=== PATIENT | female | born 1940 | race African-American/Black ===

== ENCOUNTER 2016-08-06 08:56 | Inpatient (IN) ==
--- NOTE | 2016-08-06 09:30 | Emergency Department Note ---
Gulshan Zaldivar Hilary, am scribing for, and in the presence of, Luis Manuel Pedro MD 09: 27. Mayela Zaldivar James D, MD, personally performed the services described in this documentation, ascribed by Christina Gaffney in my presence, and it is both accurate and complete 930 . Arrival - Arrival Chief Complaint: Non-Specific ED Nursing Triage Note: c/o abscess to lt groin. saw pcp and took antibiotics with no relief. no abscess noted to groin. pt just c/o rt shoulder pain Mode of Arrival: Stretcher Limitations: No Limitations Source: Patient, RN Notes Reviewed Time Seen by Provider: 08/06/16 09:16 - History of Present Illness HPI Narrative: Pt is a 76 y/o black female presenting to the ED with c/o chronic rt shoulder pain which onset 2 months ago. Pt has been here for the same problem and she was told to go to her PCP to have it checked and she has a nerve conduction study scheduled in 2 days. Pt confirms rt shoulder pain. Pt also mentions an abscess in her groin on the left side. No other complaints or problems stated in the ED. Onset (ago): month(s) Consistency: constant Severity: severe Allergies/Adverse Reactions: Allergies Allergy/AdvReac Type Severity Reaction Status Date / Time vancomycin AdvReac Unknown/Unable Verified 07/22/16 17:16 to obtain Home Medications: Home Medications Medication Instructions Recorded Confirmed Type Aspirin [Ecotrin] 81 mg PO QAM 09/07/15 07/22/16 History Digoxin Tab [Lanoxin Tab] 0.125 mg PO QAM 09/07/15 07/22/16 History Pantoprazole Tab [Protonix Tab] 40 mg PO QAM 09/07/15 07/22/16 History Tamoxifen Citrate 20 mg PO QAM 09/07/15 07/22/16 History Atorvastatin [Lipitor] 40 mg PO BEDTIME 02/03/16 07/22/16 History Magnesium 250 mg PO QAM 02/03/16 07/22/16 History Metformin HCl 1,000 mg PO BID W/MEALS 02/03/16 07/22/16 History Metoclopramide Tab [Reglan Tab] 10 mg PO ACHS 02/03/16 07/22/16 History Apixaban [Eliquis] 5 mg PO BID tablet 02/08/16 07/22/16 Rx Metoprolol Tartrate Tab [Lopressor 100 mg PO BID tablet 02/08/16 07/22/16 Rx Tab] glyBURIDE [Diabeta] 5 mg PO BID W/MEALS tablet 02/08/16 07/22/16 Rx Diltiazem Cd Cap [Cardizem CD] 120 mg PO QAM 07/22/16 07/22/16 History Folic Acid Tab 1 mg PO QAM 07/22/16 07/22/16 History Furosemide [Furosemide] 40 mg PO BID 07/22/16 07/22/16 History Hydrocodone/Acetaminophen 1 each PO Q4H PRN 07/22/16 07/22/16 History [Hydrocodon-Acetaminophn 10-325] Insulin NPH/Regular 70/30 [HumuLIN 0 units SUBCUT ACHS PRN 07/22/16 07/22/16 History 70/30] Insulin NPH/Regular 70/30 [HumuLIN 22 units SUBCUT QPM 07/22/16 07/22/16 History 70/30] Insulin NPH/Regular 70/30 [HumuLIN 25 units SUBCUT QAM 07/22/16 07/22/16 History 70/30] Review of System - Review of System 12 point system: reviewed and no additional remarkable complaints except as stated - Review of System Musculoskeletal: Present: arm pain (rt shoulder pain) Skin: Present: other (abcess in groin) Medical,Surgical,& Family Hx - Medical History Cardio: History of: Cardiac Dysrhythmia (atrial fibrillation), Hypertension No history of: Pacemaker, Valvular Heart Disease Neurology: History of: Cerebrovascular Accident Endocrine: History of: Diabetes Mellitus (IDDM) Respiratory: No history of: COPD, Obstructive Sleep Apnea, Pulmonary Embolism Renal: History of: Renal Problems (Abnormal Renal CT suspicious renal cell CA June 2015) Gastrointestinal: History of: GERD, Gastrointestinal Cancer (colon) No history of: Gastrointestinal Bleed, Hematochezia Reproductive: History of: Breast Cancer - Surgical History Abdominal Surgeries: Surgical HX of: Colonoscopy Reproductive Surgeries: Surgical HX of;: Breast Surgery (right breast mastectomy ) - Family History Family History: Reports;: Family Cancer, Family Diabetes, Family Hypertension - Social History Smoking Status: Current every day smoker Frequency of Alcohol Use: None Type of Drug Use: None Exam Physical Examination: GENERAL: This is a well-nourished, well-developed in no apparent distress. VITAL SIGNS: Temperature: 97.2 Pulse: 78 Respiratory: 18 Blood Pressure: 156/87 O2Sat: 99 HEENT: Head is normocephalic and atraumatic. Pupils are equally round and reactive to light. Extraocular movement are intact. Oropharynx is benign with moist mucous membranes. NECK: Neck is soft and supple without tenderness. There are no masses. There is no lymphadenopathy. LUNGS: Lungs are clear to auscultation bilaterally. Chest rises symmetrically. There is no chest wall tenderness. CV: Heart is regular rate and rhythm without murmurs, rubs, or gallops. ABDOMEN: Abdomen is soft, epigastric tenderness to palpation. There are no abnormal masses palpated. There is no organomegaly. Bowel sounds are present and active. SKIN: Skin is warm and dry. No rash. EXTREMITIES: Patient has full range of motion without tenderness. There is no pedal edema. NEUROLOGIC: Awake, alert, and oriented x4. Cranial nerves II through XII are grossly intact. There are no motorsensory deficits. PSYCHIATRIC: Normal affect. Normal mood. Vital Signs: Vital Signs Temperature 97.2 F L 08/06/16 08:57 Pulse Rate 78 08/06/16 08:57 Respiratory Rate 18 08/06/16 09:25 Blood Pressure 156/87 08/06/16 08:57 O2 Sat by Pulse Oximetry 99 08/06/16 08:57 Course - Consultations Consultation #1: Discussed with hospitalist. Patient will be admitted to their service. Time: 12:31 Results - Labs CBC & BMP: 08/06/16 10:14 08/06/16 10:14 Lab Results: I have reviewed the patients labs Labs: Laboratory Tests 08/06/16 10:14 Urine pH 6.0 Ur Specific [place] 1.024 Urine Protein 30 Urine RBC 2 Urine WBC 1 Laboratory Tests 08/06/16 08/06/16 08/06/16 10:14 10:14 10:14 WBC 11.6 RBC 5.21 Hgb 14.4 Hct 42.0 MCV 80.6 L MPV 12.1 H Lymph % (Auto) 19.7 L Neut # (Auto) 8.3 H Urine Color Yellow Urine Appearance Clear Urine Urobilinogen < 2.0 H Urine Opiates Screen Positive H - Diagnostic Findings Procedure: Chest x-ray: image reviewed by me (No acute cardiopulmonary process compared to the previous study. Stable mild cardiomegaly), CT: report reviewed by me (CT head/brain: No acute intracranial process. Chronic small occipital infarcts bilaterally. Cerebral atrophy.) Disposition Clinical Impression: Right shoulder pain, Altered mental status Case discussed with: patient Disposition: Still a Patient Condition: Stable
--- NOTE | 2016-08-06 09:52 | XRay Report ---
History: Right shoulder pain Date: 08/06/2016 Study: Chest x-ray AP portable Comparison exam: February 06, 2016 chest x-ray There is stable mild cardiomegaly. The mediastinal contour is unchanged. There is mild aortic arch calcification. The pulmonary vasculature is not engorged. The lungs are generally clear. Shallow breath. There is no gross pleural effusion. There is osteopenia. Impression: No acute cardiopulmonary process compared to the previous study. Stable mild cardiomegaly PROCEDURE INTERPRETED AT [facility] DEPARTMENT OF RADIOLOGY Final Report Signed by: Dr. Tavia Singh
[2016-08-06 11:15] LABS: Apearance,Urine CLEAR (Clear); Bacteria,Urine Occasional /HPF (Few); Bilirubin,Urine Negative (Negative); Blood, Urine Small mg/dL (Negative); Glucose,Urine (UA) >=500 mg/dL (Negative); Hyaline Casts,Urine 5 /LPF (0-3); Ketones,Urine Negative (Negative); Mucus,Urine Occasional /LPF (Occasional); Nitrite,Urine Negative (Negative); Protein,Urine 30 MG/DL; RBC,Urine 2 /HPF (0-4); Squamous Epithelial Cell,Urine Occasional /HPF (0-10); Urine Color Yellow (Yellow); Urine Specific Gravity 1.024 (1.001-1.035); Urine Urobilinogen < 2.0 EU/DL (0.2-1.0); WBC,Urine 1 /HPF (0-6)
[2016-08-06 11:16] LABS: Basophils # 0.1 10*3/uL (0.0-0.2); Basophils % 0.6 % (0.0-0.8); Eosinophils # 0.1 10*3/uL (0.0-0.87); Eosinophils % 0.7 % (0.00-10.9); Hemoglobin 14.4 GM/DL (12.0-16.0); Immature Granulocytes % 0.5 %; Immature Granulocytes Absolute 0.06 #; Lymphocytes # 2.3 10*3/uL (1.4-4.0); Lymphocytes % 19.7 % (21.3-54.2); Mean Corpuscular HGB Conc 34.3 GM/DL (32-36); Mean Corpuscular Hemoglobin 28 PG (27-34); Mean Corpuscular Volume 80.6 FL (87-102); Mean Platelet Volume 12.1 FL (9.6-12.0); Monocytes # 0.8 10*3/uL (0.11-0.8); Monocytes % 6.8 % (1.7-12.7); Neutrophils # 8.3 10*3/uL (1.4-7.4); Neutrophils % 71.7 % (38.7-73.9); Platelet Count 196 T/CUMM (130-400); Red Blood Count 5.21 MC/CUMM (3.8-5.5); Red Cell Distribution Width 13.8 % (9.3-17.3); White Blood Count 11.6 T/CUMM (4-12)
[2016-08-06 11:39] LABS: Ammonia 21 UMOL/L (11-32)
[2016-08-06 11:42] LABS: Alanine Aminotransferase 22 U/L (13-56); Albumin 3.3 G/DL (3.4-5.0); Alkaline Phosphatase 88 U/L (45-117); Aspartate Amino Transferase 15 U/L (0-37); Bilirubin,Total < 0.39 MG/DL (0.2-1.0); Blood Urea Nitrogen 19 MG/DL (7-18); Calcium 8.5 MG/DL (8.5-10.1); Glucose 256 MG/DL (74-106); Osmolality,Calculated 283.8 MOS/KG (273-304); Potassium 3.9 MMOL/L (3.5-5.1); Sodium 137 MMOL/L (136-145); Total Protein 7.2 G/DL (6.4-8.3)
--- NOTE | 2016-08-06 11:45 | CT Report ---
History: Altered mental status Date: 08/06/2016 Study: CT head without contrast Comparison exam: No previous head CT available Transaxial CT sections were obtained through the head without IV contrast. This CT exam was performed using one or more the following dose reduction techniques: Automated exposure control, adjustment of the MA and/or KV according to patient size, or use of iterative reconstruction technique. The ventricles are midline in position without evidence of hydrocephalus. There is mild diffuse cerebral atrophy. There is no mass or parenchymal hemorrhage. There is no gross CT evidence of acute cortical stroke. Small areas of chronic ischemia are noted in either occipital lobe. There is no extra-axial hematoma. There is mild to moderate distal carotid artery calcification. There is no acute abnormality of the calvarium. There is mild distal carotid artery calcic aeration bilaterally. Impression: No acute intracranial process. Chronic small occipital infarcts bilaterally. Cerebral atrophy. PROCEDURE INTERPRETED AT [facility] DEPARTMENT OF RADIOLOGY Final Report Signed by: Dr. Tavia Singh
[2016-08-06 12:09] LABS: Barbiturates Screen,Urine Negative (Negative); Benzodiazepines Screen,Urine Negative (Negative); Cannabinoid Screen,Urine Negative (Negative); Opiate Screen,Urine Positive (Negative); Phencyclidine Screen,Urine Negative (Negative)
[2016-08-06] MEDS ORDERED: ACETAMINOPHEN 325 MG TABLET PO PRN (13:55)
[2016-08-06] MEDS ORDERED: GLUCAGON 1 MG VIAL IM PRN (13:55)
[2016-08-06] MEDS ORDERED: DEXTROSE 50% 25 GM/50 ML VIAL IV PRN (13:55)
[2016-08-06] MEDS ORDERED: ONDANSETRON 4 MG/2 ML VIAL IV PRN (13:55)
[2016-08-06 14:26] LABS: Free T4 (Free Thyroxine) 1.3 NG/DL (0.76-1.46); Thyroid Stimulating Hormone 1.49 uIU/ml (0.358-3.74)
--- NOTE | 2016-08-06 15:06 | Hospitalist History & Physical ---
<Bernardo Bustillos - Last Filed: 08/06/16 15:13> Assessment and Plan - Time spent with patient Time spent with patient: Greater than 30 minutes (1) Altered mental status Status: Acute Assessment and plan: Admit for further evaluation and treatment. Blood culture stat with sed rate and CBC. Evaluation for possible new onset dementia. Current Visit: Yes (2) Right shoulder pain Status: Acute Assessment and plan: Patient is scheduled to have a nerve conduction study by Dr. Chambers on Saturday. Perhaps this can be done as an inpatient. Current Visit: Yes (3) Diabetes mellitus Status: Chronic Assessment and plan: Serum glucose greater than 200. Hemoglobin A1c was 12.0. Sliding scale insulin. Accu-Cheks ACHS. Consult dietitian for diabetic education. Current Visit: No History of Present Illness Chief complaint: Altered mental status History of present illness: Ms. Palomo is a 76 year old female with a past medical history of colon cancer and breast cancer with right mastectomy 2 years ago, atrial fibrillation, diabetes mellitus, hypertension, congestive heart failure, chronic right shoulder pain who presents to the ED with complaints of progressive altered mental status. On exam, the patient is alert and oriented to person and time, however the daughter who is at bedside states that the patient is confused, restless with a decreased appetite. The patient's recently passed, and the daughter suspects this has something to do with the patient's current state. The patient is currently complaining of right shoulder pain and restlessness. Patient does answer questions appropriately but is easily distracted. She denies headache, blurry vision, palpitations, near syncope. Patient is scheduled to have a nerve conduction study on Saturday per Dr. Gen Chambers. Lab work reveals sodium 137, potassium 3.9, chloride 99, BUN 19, creatinine 1.10, glucose 256, hemoglobin A1c 12.0. Urine drug screen was positive for opiates. In discussion with Dr. Pedro and Dr. Johnson, patient will be admitted to the hospital medicine service for further evaluation and treatment. Patient is a full code. Home Medications Medication Instructions Recorded Confirmed Type Aspirin [Ecotrin] 81 mg PO QAM 09/07/15 07/22/16 History Digoxin Tab [Lanoxin Tab] 0.125 mg PO QAM 09/07/15 07/22/16 History Pantoprazole Tab [Protonix Tab] 40 mg PO QAM 09/07/15 07/22/16 History Tamoxifen Citrate 20 mg PO QAM 09/07/15 07/22/16 History Atorvastatin [Lipitor] 40 mg PO BEDTIME 02/03/16 07/22/16 History Magnesium 250 mg PO QAM 02/03/16 07/22/16 History Metformin HCl 1,000 mg PO BID W/MEALS 02/03/16 07/22/16 History Metoclopramide Tab [Reglan Tab] 10 mg PO ACHS 02/03/16 07/22/16 History Apixaban [Eliquis] 5 mg PO BID tablet 02/08/16 07/22/16 Rx Metoprolol Tartrate Tab [Lopressor 100 mg PO BID tablet 02/08/16 07/22/16 Rx Tab] glyBURIDE [Diabeta] 5 mg PO BID W/MEALS tablet 02/08/16 07/22/16 Rx Diltiazem Cd Cap [Cardizem CD] 120 mg PO QAM 07/22/16 07/22/16 History Folic Acid Tab 1 mg PO QAM 07/22/16 07/22/16 History Furosemide [Furosemide] 40 mg PO BID 07/22/16 07/22/16 History Hydrocodone/Acetaminophen 1 each PO Q4H PRN 07/22/16 07/22/16 History [Hydrocodon-Acetaminophn 10-325] Insulin NPH/Regular 70/30 [HumuLIN 0 units SUBCUT ACHS PRN 07/22/16 07/22/16 History 70/30] Insulin NPH/Regular 70/30 [HumuLIN 22 units SUBCUT QPM 07/22/16 07/22/16 History 70/30] Insulin NPH/Regular 70/30 [HumuLIN 25 units SUBCUT QAM 07/22/16 07/22/16 History 70/30] Allergies Allergy/AdvReac Type Severity Reaction Status Date / Time vancomycin AdvReac Unknown/Unable Verified 07/22/16 17:16 to obtain Medical,Surgical,& Family Hx - Medical History Cardio: History of: Cardiac Dysrhythmia (atrial fibrillation), Hypertension No history of: Pacemaker, Valvular Heart Disease Psychological: History of: Anxiety Disorders, Depression No history of: ADHD, Previous Suicide Attempt, Psychiatric/Substance Abuse Tx , Schizophrenia, Violent Behavior, Psychiatric Problems Neurology: History of: Cerebrovascular Accident Endocrine: History of: Diabetes Mellitus (IDDM) Respiratory: No history of: COPD, Obstructive Sleep Apnea, Pulmonary Embolism Renal: History of: Renal Problems (Abnormal Renal CT suspicious renal cell CA June 2015) Gastrointestinal: History of: GERD, Gastrointestinal Cancer (colon) No history of: Gastrointestinal Bleed, Hematochezia Reproductive: History of: Breast Cancer - Surgical History Abdominal Surgeries: Surgical HX of: Colonoscopy Reproductive Surgeries: Surgical HX of;: Breast Surgery (right breast mastectomy ) - Family History Family History: Reports;: Family Cancer, Family Diabetes, Family Hypertension - Social History Smoking Status: Current every day smoker Frequency of Alcohol Use: None Type of Drug Use: None - Constitutional Constitutional: Present: headache(s), weakness, other (restless, decreased appetite) - EENT Eyes: Absent: blurry vision, loss of vision Nose, mouth and throat: Absent: neck pain, sore throat - Cardiovascular Cardiovascular: Present: edema. Absent: chest pain at rest, chest pain with activity, dyspnea - Respiratory Respiratory: Absent: cough, dyspnea - Gastrointestinal Gastrointestinal: Absent: abdominal pain, diarrhea - Genitourinary Genitourinary: Absent: difficulty urinating, dysuria - Musculoskeletal Musculoskeletal: Present: other (right shoulder pain). Absent: back pain - Neurological Neurological: Present: confusion, memory loss. Absent: syncope - Psychiatric Psychiatric: Present: confusion. Absent: anxiety, depression, suicidal ideation - Endocrine Endocrine: Absent: cold intolerance, fatigue, heat intolerance - Hematologic/Lymphatic Hematologic/Lymphatic: Absent: easy bleeding, easy bruising Exam - Constitutional Vitals: Period Temp Pulse Resp BP Sys/Antunez Pulse Ox Last 24 Hr 97.2 F-98.0 F 78-142 18-18 142-156/80-87 18-99 Exam: General appearance: normal weight, no acute distress - Head Head exam: Present: normocephalic, atraumatic - Eye Eye exam: Present: EOMI. Absent: conjunctival injection, nystagmus Pupils: Present: ELLIOTT, normal accommodation - ENT ENT exam: Present: normal exam, normal external ear exam - Neck Neck exam: Present: normal inspection. Absent: lymphadenopathy, tenderness, thyromegaly - Respiratory Respiratory exam: Present: clear to auscultation bilaterally. Absent: rales, rhonchi, wheezes - Cardiovascular Cardiovascular exam: Present: regular rate and rhythm. Absent: carotid bruit, gallop, rubs - GI/Abdominal GI/Abdominal exam: Present: normal bowel sounds. Absent: ascites, distended, mass - Extremities Exam Extremities exam: Present: normal inspection, normal capillary refill, trace edema - Back Exam Back exam: Absent: CVA tenderness (L), CVA tenderness (R) - Neurological Exam Neurological exam: Present: alert, oriented to person and time - Psychiatric Psychiatric exam: Present: normal affect, normal mood - Skin Skin exam: Present: normal color, warm, dry Results - Labs CBC & BMP: 08/06/16 10:14 08/06/16 10:14 Lab Results: I have reviewed the past 24 hour labs <Page Johnson R - Last Filed: 08/06/16 18:11> Assessment and Plan (1) Severe major depression Status: Acute Assessment and plan: Rupa psychiatry for an evaluation. Had a recent loss of her . She seems like she has dementia developing. Her appetite is poor and she is not sleeping at night. Check sed rate and TSH. No obvious sign of infection. UA negative and chest x-ray negative Current Visit: Yes (2) Diabetes mellitus Status: Chronic Assessment and plan: Patient has uncontrolled diabetes. Continue glyburide, metformin, insulin Current Visit: No (3) CHF (congestive heart failure) Status: Acute Assessment and plan: Echocardiogram from 2016 showed an EF of 55% with no diastolic dysfunction she does have an elevated PAP of 50. Will check BNP and hold Lasix Current Visit: No (4) Hypertension Status: Chronic Assessment and plan: Continue diltiazem and metoprolol Current Visit: No Qualifiers: Hypertension type: essential hypertension Qualified Code(s): I10 - Essential (primary) hypertension (5) MARIA (obstructive sleep apnea) Status: Chronic Assessment and plan: Consult sleep medicine Current Visit: No (6) Right shoulder pain Status: Acute Assessment and plan: Called down to the sleep lab and asked them to do a nerve conduction study in the hospital. Current Visit: Yes (7) Atrial fibrillation Status: Chronic Assessment and plan: Rate controlled with diltiazem and metoprolol, continue Eliquis, check magnesium Current Visit: No Qualifiers: Atrial fibrillation type: paroxysmal Qualified Code(s): I48.0 - Paroxysmal atrial fibrillation History of Present Illness History of present illness: Ms. Palomo is a 76 year old female seen and examined. patient reports severe depression and we suspect dementia. She has also not been sleeping well at all. I spoke with the daughter. Daughter reports she needs constant attention. reports her recently . Medical,Surgical,& Family Hx - Social History Marital Status: Lives With:: Children Functional capacity: uses cane/walker Exam - Constitutional Vitals: Period Temp Pulse Resp BP Sys/Antunez Pulse Ox Last 24 Hr 97.1 F-98.0 F 78-142 18-18 133-156/11-87 18-99 Results - Labs CBC & BMP: 08/06/16 10:14 08/06/16 10:14 - Diagnostic Findings Procedure: Chest x-ray: report reviewed by me (no acute changes), CT: report reviewed by me (head bilateral infarct)
[2016-08-06] MEDS ORDERED: FUROSEMIDE 40 MG TABLET PO SCH (16:00)
[2016-08-06] MEDS: METOCLOPRAMIDE 10 MG TABLET PO SCH ×2 (16:52→20:44)
[2016-08-06] MEDS: METOPROLOL TARTRATE 100 MG TABLET PO SCH ×2 (16:53→20:44)
[2016-08-06] MEDS: glyBURIDE 5 MG TABLET PO SCH (16:53)
[2016-08-06] MEDS: metFORMIN 500 MG TABLET PO SCH (16:53)
[2016-08-06] MEDS: PANTOPRAZOLE 40 MG TABLET PO SCH (16:54)
[2016-08-06] MEDS: SODIUM CHLORIDE 0.45% 1,000 ML IV SCH (16:54)
[2016-08-06] MEDS: INSULIN LISPRO 100 UNIT/ML SUBCUT SCH ×2 (16:59→20:44)
[2016-08-06] MEDS: FLUCONAZOLE INJ 200 MG in PREMIX 1 EACH IV SCH (18:26)
[2016-08-06] MEDS: INSULIN NPH/REGULAR 70/30 100 UNIT/ML SUBCUT SCH (18:52)
[2016-08-06] MEDS: APIXABAN 5 MG TABLET PO SCH (20:44)
[2016-08-06] MEDS: ATORVASTATIN 40 MG TABLET PO SCH (20:44)
[2016-08-06] MEDS: NYSTATIN POWDER 15 GM BOTTLE TOP SCH (20:44)
[2016-08-06] MEDS: ZALEPLON 5 MG CAPSULE PO PRN (22:56)
[2016-08-07] MEDS: ZALEPLON 5 MG CAPSULE PO PRN (00:18)
[2016-08-07] MEDS: SODIUM CHLORIDE 0.45% 1,000 ML IV SCH (06:16)
[2016-08-07 06:17] LABS: Basophils # 0.1 10*3/uL (0.0-0.2); Basophils % 0.5 % (0.0-0.8); Eosinophils # 0.1 10*3/uL (0.0-0.87); Eosinophils % 1.2 % (0.00-10.9); Hematocrit 41.2 VOL% (35.7-47.0); Immature Granulocytes % 0.6 %; Immature Granulocytes Absolute 0.07 #; Lymphocytes % 25.9 % (21.3-54.2); Mean Corpuscular Hemoglobin 27 PG (27-34); Mean Corpuscular Volume 80.5 FL (87-102); Mean Platelet Volume 12.5 FL (9.6-12.0); Monocytes # 0.8 10*3/uL (0.11-0.8); Monocytes % 6.8 % (1.7-12.7); Neutrophils # 7.5 10*3/uL (1.4-7.4); Platelet Count 196 T/CUMM (130-400); Red Blood Count 5.12 MC/CUMM (3.8-5.5); White Blood Count 11.5 T/CUMM (4-12)
[2016-08-07] MEDS ORDERED: MAGNESIUM GLUCONATE 500 MG TABLET PO SCH (09:00)
[2016-08-07] MEDS: INSULIN NPH/REGULAR 70/30 100 UNIT/ML SUBCUT SCH ×2 (09:29→18:43)
[2016-08-07] MEDS: INSULIN LISPRO 100 UNIT/ML SUBCUT SCH ×4 (09:30→20:11)
[2016-08-07] MEDS: METOPROLOL TARTRATE 100 MG TABLET PO SCH ×2 (09:32→20:10)
[2016-08-07] MEDS: APIXABAN 5 MG TABLET PO SCH ×2 (09:32→20:10)
[2016-08-07] MEDS: DILTIAZEM CD 120 MG CAPSULE PO SCH (09:32)
[2016-08-07] MEDS: TAMOXIFEN 10 MG TABLET PO SCH (09:32)
[2016-08-07] MEDS: glyBURIDE 5 MG TABLET PO SCH ×2 (09:33→16:51)
[2016-08-07] MEDS: metFORMIN 500 MG TABLET PO SCH ×2 (09:33→16:51)
[2016-08-07] MEDS: FOLIC ACID 1 MG TABLET PO SCH (09:33)
[2016-08-07] MEDS: METOCLOPRAMIDE 10 MG TABLET PO SCH ×4 (09:33→20:11)
[2016-08-07] MEDS: DIGOXIN 0.125 MG TABLET PO SCH (09:33)
[2016-08-07] MEDS: ASPIRIN EC 81 MG TABLET PO SCH (09:33)
[2016-08-07] MEDS: PANTOPRAZOLE 40 MG TABLET PO SCH (09:34)
[2016-08-07] MEDS: NYSTATIN POWDER 15 GM BOTTLE TOP SCH ×3 (09:39→20:11)
--- NOTE | 2016-08-07 11:36 | XRay Report ---
XR KUB Indication: Constipation Comparison: CT chest abdomen pelvis dated November 16, 2015 Technique: Frontal views of the abdomen Findings: Nonspecific nonobstructive bowel gas pattern. Surgical clips project over the right upper quadrant and right lower quadrant. Degenerative change of the spine present. Lung bases clear. IMPRESSION: No acute abnormality demonstrated. PROCEDURE INTERPRETED AT [facility] DEPARTMENT OF RADIOLOGY Final Report Signed by: Dr Jaron Pepper
[2016-08-07] MEDS ORDERED: MAGNESIUM SULF RIDER 4 GM in PREMIX 1 EACH IV ONE (13:01)
--- NOTE | 2016-08-07 13:06 | Hospitalist Progress Note ---
Assessment and Plan (1) Severe major depression Status: Acute Assessment and plan: Rupa psychiatry for an evaluation. Had a recent loss of her . She seems like she has dementia developing. Her appetite is poor and she is not sleeping at night. Normal sed rate and TSH no obvious sign of infection. UA negative and chest x-ray negative Current Visit: Yes (2) Diabetes mellitus Status: Chronic Assessment and plan: Patient has uncontrolled diabetes. Continue glyburide, metformin, insulin Current Visit: No (3) CHF (congestive heart failure) Status: Acute Assessment and plan: Echocardiogram from 2016 showed an EF of 55% with no diastolic dysfunction she does have an elevated PAP of 50. BNP 168 and restart Lasix Current Visit: No (4) Hypertension Status: Chronic Assessment and plan: Continue diltiazem and metoprolol Current Visit: No Qualifiers: Hypertension type: essential hypertension Qualified Code(s): I10 - Essential (primary) hypertension (5) MARIA (obstructive sleep apnea) Status: Chronic Assessment and plan: Consult sleep medicine Current Visit: No (6) Right shoulder pain Status: Acute Assessment and plan: Called down to the sleep lab and asked them to do a nerve conduction study in the hospital today. It depends on Dr. ovalle schedule Current Visit: Yes (7) Atrial fibrillation Status: Chronic Assessment and plan: Rate controlled with diltiazem and metoprolol, continue Eliquis Current Visit: No Qualifiers: Atrial fibrillation type: paroxysmal Qualified Code(s): I48.0 - Paroxysmal atrial fibrillation (8) Hypomagnesemia Status: Acute Assessment and plan: Replace and recheck in a.m. Current Visit: No Hospitalist: Subjective Interval history: Patient says she just feels bad all over but is not actually having pain. She did have a bowel movement last night but still has diminished bowel sounds. Talked to the neurology lab about doing a nerve conduction study. Hopefully they can do that today versus tomorrow. This is a depends at Dr. Biggs's schedule Exam - Constitutional Vitals: Period Temp Pulse Resp BP Sys/Antunez Pulse Ox Last 24 Hr 96.9 F-100 F 71-142 16-20 133-170/11-94 18-99 Exam: Heart Rate-[RRR] Lungs-[CTAB] GI-[diminished bs soft, NT] Ext-[no edema] Neuro [Motor 5/5], [alert and oriented times 3] psych [normal mood and affect] General [no acute distress] Results - Labs CBC & BMP: 08/07/16 05:05 08/06/16 10:14 Lab Results: I have reviewed the past 24 hour labs - Diagnostic Findings Procedure: KUB x-ray: report reviewed by me (no obstruction )
--- NOTE | 2016-08-07 13:27 | Sleep Medicine Consult ---
Assessment and Plan - Time spent with patient Time spent with patient: Greater than 30 minutes (1) Unspecified sleep apnea Status: Acute Assessment and plan: On further review of prior records, Ms. Palomo was was seen as a consult by Dr. Redd during her last hospital admission in February. An outpatient polysomnography was ordered at that time but she failed to keep the appointment for overnight polysomnography. Her symptoms such as excessive daytime fatigue and sleepiness have continued as well as non-refreshing sleep. I recommend with her significant medical history including atrial fibrillation, hypertension , diabetes and congestive heart failure, that she undergo overnight polysomnography following her hospital discharge to rule out underlying sleep disorder. She verbalized understanding. Current Visit: No Qualifiers: Sleep apnea type: unspecified type Qualified Code(s): G47.30 - Sleep apnea , unspecified History of Present Illness Chief complaint: poor sleep History of present illness: Ms. Palomo is a 76 year old female -[place] female who was admitted yesterday with acute altered mental state and right shoulder pain. She has a known history of hypertension, congestive heart failure, atrial fibrillation, obesity and history of breast and colon cancer. Sleep Medicine has been consulted due to complaints of poor sleep. She is unaccompanied presently and is difficult to obtain a thorough history from. She denies and history of snoring at night and has never been told her breathing was abnormal. She does report frequent sleep disruption throughout the night due to either pain or frequent urination. She sleeps sitting upright in a recliner due to mobility purposes and denies any orthopnea. Nights that are spent in the bed, she denies any shortness of breath or nighttime awakenings with feelings of anxiety. Following the of her recently, her health has deteriorated and she reports feeling "sleepy" all the time. She admits to significant symptoms of depression. She has daughters that provide support as they are able. Her lifestyle is sedentary and she does require walker for mobility. Home Medications Medication Instructions Recorded Confirmed Type Aspirin [Ecotrin] 81 mg PO QAM 09/07/15 07/22/16 History Digoxin Tab [Lanoxin Tab] 0.125 mg PO QAM 09/07/15 07/22/16 History Pantoprazole Tab [Protonix Tab] 40 mg PO QAM 09/07/15 07/22/16 History Tamoxifen Citrate 20 mg PO QAM 09/07/15 07/22/16 History Atorvastatin [Lipitor] 40 mg PO BEDTIME 02/03/16 07/22/16 History Magnesium 250 mg PO QAM 02/03/16 07/22/16 History Metformin HCl 1,000 mg PO BID W/MEALS 02/03/16 07/22/16 History Metoclopramide Tab [Reglan Tab] 10 mg PO ACHS 02/03/16 07/22/16 History Apixaban [Eliquis] 5 mg PO BID tablet 02/08/16 07/22/16 Rx Metoprolol Tartrate Tab [Lopressor 100 mg PO BID tablet 02/08/16 07/22/16 Rx Tab] glyBURIDE [Diabeta] 5 mg PO BID W/MEALS tablet 02/08/16 07/22/16 Rx Diltiazem Cd Cap [Cardizem CD] 120 mg PO QAM 07/22/16 07/22/16 History Folic Acid Tab 1 mg PO QAM 07/22/16 07/22/16 History Furosemide [Furosemide] 40 mg PO BID 07/22/16 07/22/16 History Hydrocodone/Acetaminophen 1 each PO Q4H PRN 07/22/16 07/22/16 History [Hydrocodon-Acetaminophn 10-325] Insulin NPH/Regular 70/30 [HumuLIN 0 units SUBCUT ACHS PRN 07/22/16 07/22/16 History 70/30] Insulin NPH/Regular 70/30 [HumuLIN 22 units SUBCUT QPM 07/22/16 07/22/16 History 70/30] Insulin NPH/Regular 70/30 [HumuLIN 25 units SUBCUT QAM 07/22/16 07/22/16 History 70/30] Allergies Allergy/AdvReac Type Severity Reaction Status Date / Time vancomycin AdvReac Unknown/Unable Verified 07/22/16 17:16 to obtain - Constitutional Constitutional: Present: daytime sleepiness, fatigue, frequent falls, lethargy. Absent: night sweats, stops breathing during sleep - EENT Nose, mouth and throat: Absent: headache(s), vertigo - Cardiovascular Cardiovascular: Absent: chest pain at rest, chest pain with activity, dyspnea on exertion, orthopnea - Respiratory Respiratory: Absent: cough, hemoptysis, snoring - Gastrointestinal Gastrointestinal: Present: heartburn. Absent: abdominal pain, nausea, vomiting - Genitourinary Genitourinary: Present: urinary frequency (2-3 times per night) - Musculoskeletal Musculoskeletal: Present: arthralgias, muscle weakness, other (right shoulder pain) - Neurological Neurological: Present: frequent falls, memory loss - Psychiatric Psychiatric: Present: confusion, depression. Absent: anxiety Exam (Pulmonay) H&P - Constitutional Vitals: Period Temp Pulse Resp BP Sys/Antunez Pulse Ox Last 24 Hr 96.9 F-100 F 71-142 16-20 133-170/11-94 18-99 General appearance: morbidly obese - Head Head exam: Present: normocephalic, atraumatic, other (neck circ 16") - Eye Pupils: Present: ELLIOTT - ENT ENT exam: Present: other (Mallampati class IV) - Expanded ENT Exam ENT Exam Mouth exam: Present: dry mucosa Teeth exam: Present: other (no upper teeth/ does not wear dentures) - Neck Neck exam: Absent: lymphadenopathy, thyromegaly - Respiratory Respiratory exam: Present: clear to auscultation bilaterally - Cardiovascular Cardiovascular exam: Present: regular rate and rhythm. Absent: systolic murmur - GI/Abdominal GI/Abdominal exam: Present: normal bowel sounds, soft. Absent: distended, mass , tenderness - Extremities Exam Extremities exam: Present: normal capillary refill, edema (trace edema to lower extremities) - Psychiatric Psychiatric exam: Present: agitated, depressed, flat affect - Skin Skin exam: Present: warm, dry Medical,Surgical,& Family Hx - Medical History Cardio: History of: Cardiac Dysrhythmia (atrial fibrillation), Hypertension No history of: Pacemaker, Valvular Heart Disease Psychological: History of: Anxiety Disorders, Depression No history of: ADHD, Previous Suicide Attempt, Psychiatric/Substance Abuse Tx , Schizophrenia, Violent Behavior, Psychiatric Problems Neurology: History of: Cerebrovascular Accident Endocrine: History of: Diabetes Mellitus (IDDM) Respiratory: No history of: COPD, Obstructive Sleep Apnea, Pulmonary Embolism Renal: History of: Renal Problems (Abnormal Renal CT suspicious renal cell CA June 2015) Gastrointestinal: History of: GERD, Gastrointestinal Cancer (colon) No history of: Gastrointestinal Bleed, Hematochezia Reproductive: History of: Breast Cancer - Surgical History Abdominal Surgeries: Surgical HX of: Colonoscopy Reproductive Surgeries: Surgical HX of;: Breast Surgery (right breast mastectomy ) - Family History Family History: Reports;: Family Cancer, Family Diabetes, Family Hypertension - Social History Smoking Status: Smoker, status unknown Frequency of Alcohol Use: None Type of Drug Use: None Results - Labs CBC & BMP: 08/07/16 05:05 08/06/16 10:14
[2016-08-07] MEDS ORDERED: MAGNESIUM CITRATE 300 ML BOTTLE PO ONE (13:30)
[2016-08-07] MEDS: AMOXICILLIN/CLAV 875 MG TABLET PO SCH ×2 (14:15→20:10)
[2016-08-07] MEDS: MAGNESIUM GLUCONATE 500 MG TABLET PO SCH ×2 (14:15→20:10)
[2016-08-07] MEDS: FLUCONAZOLE INJ 200 MG in PREMIX 1 EACH IV SCH (17:03)
[2016-08-07] MEDS: ATORVASTATIN 40 MG TABLET PO SCH (20:10)
[2016-08-07] MEDS ORDERED: ZALEPLON 5 MG CAPSULE PO SCH (21:00)
[2016-08-08 06:58] LABS: Basophils # 0.1 10*3/uL (0.0-0.2); Basophils % 0.6 % (0.0-0.8); Eosinophils # 0.1 10*3/uL (0.0-0.87); Eosinophils % 1.2 % (0.00-10.9); Hematocrit 41.7 VOL% (35.7-47.0); Hemoglobin 13.9 GM/DL (12.0-16.0); Immature Granulocytes % 0.5 %; Immature Granulocytes Absolute 0.05 #; Lymphocytes # 2.4 10*3/uL (1.4-4.0); Lymphocytes % 21.9 % (21.3-54.2); Mean Corpuscular HGB Conc 33.3 GM/DL (32-36); Mean Corpuscular Hemoglobin 27 PG (27-34); Mean Platelet Volume 11.3 FL (9.6-12.0); Monocytes # 0.8 10*3/uL (0.11-0.8); Monocytes % 7.4 % (1.7-12.7); Neutrophils # 7.4 10*3/uL (1.4-7.4); Neutrophils % 68.4 % (38.7-73.9); Platelet Count 180 T/CUMM (130-400); Red Blood Count 5.15 MC/CUMM (3.8-5.5); Red Cell Distribution Width 14.1 % (9.3-17.3); White Blood Count 10.8 T/CUMM (4-12)
[2016-08-08] MEDS: INSULIN LISPRO 100 UNIT/ML SUBCUT SCH ×3 (07:47→15:57)
[2016-08-08] MEDS: TAMOXIFEN 10 MG TABLET PO SCH (08:13)
[2016-08-08] MEDS: FOLIC ACID 1 MG TABLET PO SCH (08:13)
[2016-08-08] MEDS: glyBURIDE 5 MG TABLET PO SCH (08:13)
[2016-08-08] MEDS: METOPROLOL TARTRATE 100 MG TABLET PO SCH (08:13)
[2016-08-08] MEDS: MAGNESIUM GLUCONATE 500 MG TABLET PO SCH ×2 (08:13→14:20)
[2016-08-08] MEDS: metFORMIN 500 MG TABLET PO SCH (08:13)
[2016-08-08] MEDS: ASPIRIN EC 81 MG TABLET PO SCH (08:14)
[2016-08-08] MEDS: DIGOXIN 0.125 MG TABLET PO SCH (08:14)
[2016-08-08] MEDS: DILTIAZEM CD 120 MG CAPSULE PO SCH (08:14)
[2016-08-08] MEDS: INSULIN NPH/REGULAR 70/30 100 UNIT/ML SUBCUT SCH (08:14)
[2016-08-08] MEDS: METOCLOPRAMIDE 10 MG TABLET PO SCH ×3 (08:14→15:57)
[2016-08-08] MEDS: APIXABAN 5 MG TABLET PO SCH (08:14)
[2016-08-08] MEDS: AMOXICILLIN/CLAV 875 MG TABLET PO SCH (08:14)
[2016-08-08] MEDS: PANTOPRAZOLE 40 MG TABLET PO SCH (08:14)
[2016-08-08] MEDS: NYSTATIN POWDER 15 GM BOTTLE TOP SCH ×2 (08:15→14:20)
--- NOTE | 2016-08-08 11:04 | Discharge Summary ---
Hospital Course - Hospital Course Hospital Course: 76-year-old -[place] female with a history of hypertension and atrial fib presents to the emergency room with complaints of altered mental status. Patient lives with her daughter and has recently become more forgetful. Patient is afraid to be alone and needs constant attention from the daughter. Patient is recently lost her which is been devastating for her and she has clear indications of severe depression. Consulted [facility] but patient has decided against going there. I have encouraged her to go to outpatient [facility] and have started her on Zoloft. Patient also does not sleep well. She was set up for us previous sleep study but never showed up. Without treating her sleep apnea her blood pressure will be more difficult to control and she will not be able to sleep. She seemed more alert and awake this morning since sleeping on her CPAP machine at night. Patient will follow up with Dr. Aby Redd from sleep medicine. Patient also needs an outpatient dementia workup by Dr. Biggs. Patient had no evidence of infection. She is a mild elevation in her white count but her UA was negative, blood cultures negative and chest x-ray negative. I will treat her with 5 days of Augmentin. She also having problems with yeast in her groin due to her weight. We will treat her with 5 days of Diflucan and Nystatin powder. Patient's major complaint is the pain in her right shoulder. She is scheduled to get a nerve conduction study today by Dr. Biggs. Patient will be discharged home with follow-up with her primary care doctor, Dr. Biggs, [facility] and Dr. Redd - Time spent with patient Time with patient DS: Less than 30 minutes (25 min) Diagnosis - Discharge Diagnosis (1) Severe major depression Status: Acute (2) Diabetes mellitus Status: Chronic (3) CHF (congestive heart failure) Status: Acute (4) Hypertension Status: Chronic (5) MARIA (obstructive sleep apnea) Status: Chronic (6) Right shoulder pain Status: Acute (7) Atrial fibrillation Status: Chronic (8) Hypomagnesemia Status: Acute Discharge Plan - Discharge Data Disposition: Disch To Home/Self Care Condition at Discharge: Stable Discharge Diet: diabetic diet Activity: resume usual activities as tolerated Hygiene: no restrictions Weight Bearing at Discharge: full weight bearing - Discharge Medications New Amoxicillin/Clav Tab [Augmentin Tab] 875 mg PO BID #10 tablet Digoxin Tab [Lanoxin Tab] 0.125 mg PO QAM tablet Fluconazole Tab [Diflucan Tab] 200 mg PO DAILY #5 tablet Magnesium Gluconate Tab 250 mg PO TID #90 tablet Sertraline [Zoloft] 25 mg PO DAILY #30 tablet Zaleplon [Sonata] 10 mg PO BEDTIME #60 capsule Nystatin Powder [Mycostatin Powder] 1 applic TOP TID #1 bottle Continue Tamoxifen Citrate 20 mg PO QAM Pantoprazole Tab [Protonix Tab] 40 mg PO QAM Aspirin [Ecotrin] 81 mg PO QAM Atorvastatin [Lipitor] 40 mg PO BEDTIME Metformin HCl 1,000 mg PO BID W/MEALS Metoclopramide Tab [Reglan Tab] 10 mg PO ACHS Metoprolol Tartrate Tab [Lopressor Tab] 100 mg PO BID tablet glyBURIDE [Diabeta] 5 mg PO BID W/MEALS tablet Diltiazem Cd Cap [Cardizem CD] 120 mg PO BID Folic Acid Tab 1 mg PO QAM Apixaban [Eliquis] 5 mg PO BID tablet Changed Insulin NPH/Regular 70/30 [HumuLIN 70/30] 27 units SUBCUT QAM #0 Insulin NPH/Regular 70/30 [HumuLIN 70/30] 27 units SUBCUT QPM #0 Discontinued Digoxin Tab [Lanoxin Tab] 0.125 mg PO QAM Hydrocodone/Acetaminophen [Hydrocodon-Acetaminophn 10-325] 1 each PO Q12HR Furosemide [Furosemide] 40 mg PO BID - Follow Up or Referral Follow Up: Dr [facility]ilda [Other] - 1 Week (for severe depression ) dr lei [Other] - 2 Weeks Aby Redd MD [Physician] - 1 Week Bert Biggs MD [Physician] - 2 Weeks (dementia workup ) - Forms/Instructions Exam - Constitutional Vitals: Period Temp Pulse Resp BP Sys/Antunez Pulse Ox Last 24 Hr 96.9 F-97.9 F 72-84 18-20 145-163/68-94 94-99 General appearance: no acute distress, morbidly obese - Respiratory Respiratory exam: Present: clear to auscultation bilaterally. Absent: rhonchi, wheezes - Cardiovascular Cardiovascular exam: Present: regular rate and rhythm. Absent: systolic murmur - GI/Abdominal GI/Abdominal exam: Present: normal bowel sounds, soft. Absent: tenderness Discharge Results Procedures and tests throughout hospitalization: Pending Orders 08/06/16 14:25 Blood Culture Stat 08/08/16 08:56 NE nerve conduction 9-10 Stat Labs on day of discharge: Labs from last 24 hours 08/08/16 08/08/16 08/08/16 10:31 07:15 06:50 WBC RBC Hgb Hct MCV MCH MCHC RDW Plt Count MPV Neut % (Auto) Lymph % (Auto) [place] % (Auto) Eos % (Auto) Baso % (Auto) Neut # (Auto) Lymph # (Auto) [place] # (Auto) Eos # (Auto) Baso # (Auto) Immature Gran % Nucleated RBC % Immature Gran # Nucleated RBCs # POC Glucose 226 H 204 H Magnesium 2.5 H 08/08/16 08/07/16 08/07/16 06:50 19:34 17:26 WBC 10.8 RBC 5.15 Hgb 13.9 Hct 41.7 MCV 81.0 L MCH 27 MCHC 33.3 RDW 14.1 Plt Count 180 MPV 11.3 Neut % (Auto) 68.4 Lymph % (Auto) 21.9 [place] % (Auto) 7.4 Eos % (Auto) 1.2 Baso % (Auto) 0.6 Neut # (Auto) 7.4 Lymph # (Auto) 2.4 [place] # (Auto) 0.8 Eos # (Auto) 0.1 Baso # (Auto) 0.1 Immature Gran % 0.5 Nucleated RBC % 0.0 Immature Gran # 0.05 Nucleated RBCs # 0.00 POC Glucose 134 H 90 Magnesium 08/07/16 08/07/16 11:22 07:31 WBC RBC Hgb Hct MCV MCH MCHC RDW Plt Count MPV Neut % (Auto) Lymph % (Auto) [place] % (Auto) Eos % (Auto) Baso % (Auto) Neut # (Auto) Lymph # (Auto) [place] # (Auto) Eos # (Auto) Baso # (Auto) Immature Gran % Nucleated RBC % Immature Gran # Nucleated RBCs # POC Glucose 280 H 268 H Magnesium Preliminary micro results at discharge 08/06/16 14:25 Blood Culture - Preliminary Blood No growth at 1 day 08/06/16 14:25 Blood Culture - Preliminary Blood No growth at 1 day DS: Provider Date of admission: 08/06/16 12:42 Primary care physician: . No PCP Attending physician on admission: Page Johnson MD Consults: 08/06/16 14:01 Consult to Case Mgmt/Social Srvs [CONS] Routine Reason for Case Mgmt/Social Srvs: Psychiatric Management Consult Comment: geripsych for depression and dementia 08/06/16 14:02 Consult to Occupational Therapy [CONS] Routine Reason for Occupational Therapy: Evaluate and Treat Consult to Physical Therapy [CONS] Routine Reason for Physical Therapy: Evaluate and Treat 08/06/16 14:39 Consult to Dietitian [CONS] Routine Reason for Dietitian: Other 08/06/16 18:04 Consult to Sleep Center [CONS] Routine Reason for Sleep Center: Sleep Center Physician Consult Comment: maria Discharging clinician: Page Johnson MD
[2016-08-08 12:00] VITALS: BP 134/67
== END 2016-08-08 14:10 | disposition home health service (06) | DRG 881 ==
LOC: EDBD → EDUNIT# → N.ED 08:56 → N.EDINP 12:42 → N.5E 13:41
PROVIDERS: ADMIT Internal Medicine; ATTEND Internal Medicine

== ENCOUNTER 2018-12-24 06:50 | Inpatient (IN) ==
[2018-12-24] MEDS ORDERED: ONDANSETRON 4 MG/2 ML VIAL IV PRN (10:19)
[2018-12-24] MEDS ORDERED: ACETAMINOPHEN 325 MG TABLET PO PRN (10:19)
[2018-12-24] MEDS ORDERED: GLUCAGON 1 MG VIAL IM PRN ×2 (10:22→12:57)
[2018-12-24] MEDS ORDERED: DEXTROSE 50% 25 GM/50 ML VIAL IV PRN ×2 (10:22→12:57)
[2018-12-24] MEDS: INSULIN LISPRO 100 UNIT/ML SUBCUT SCH ×3 (11:50→20:47)
[2018-12-24 12:02] LABS: Alanine Aminotransferase 18 U/L (13-56); Albumin 2.7 G/DL (3.4-5.0); Alkaline Phosphatase 117 U/L (45-117); Aspartate Amino Transferase 28 U/L (0-37); Bilirubin,Total < 0.39 MG/DL (0.2-1.0); Blood Urea Nitrogen 41 MG/DL (7-18); Calcium 7.8 MG/DL (8.5-10.1); Estimated Glom Filtration Rate 14 ML/MIN; Glucose 130 MG/DL (74-106); Osmolality,Calculated 277.4 MOS/KG (273-304); Total Protein 7.1 G/DL (6.4-8.3)
[2018-12-24 13:24] LABS: Basophils % 0.4 % (0.0-0.8); Eosinophils # 0.1 10*3/uL (0.0-0.87); Eosinophils % 0.9 % (0.00-10.9); Hematocrit 25.3 VOL% (35.7-47.0); Hemoglobin 8.1 GM/DL (12.0-16.0); Immature Granulocytes % 0.5 %; Immature Granulocytes Absolute 0.05 #; Lymphocytes # 1.5 10*3/uL (1.4-4.0); Lymphocytes % 14.7 % (21.3-54.2); Mean Corpuscular Volume 70.3 FL (87-102); Mean Platelet Volume 10.9 FL (9.6-12.0); Monocytes % 14.1 % (1.7-12.7); Neutrophils % 69.4 % (38.7-73.9); Platelet Count 254 T/CUMM (130-400); Red Cell Distribution Width 23.9 % (9.3-17.3); White Blood Count 10.4 T/CUMM (4-12)
[2018-12-24] MEDS ORDERED: SODIUM CHLORIDE 0.9% 1,000 ML IV SCH (15:00)
[2018-12-24] MEDS: diphenhydrAMINE CAP 25 MG CAPSULE PO PRN (16:05)
[2018-12-24] MEDS: DEXTROSE 10% 250 ML BAG IV PRN ×2 (17:43→20:46)
[2018-12-25] MEDS: diphenhydrAMINE CAP 25 MG CAPSULE PO PRN ×2 (01:45→17:23)
[2018-12-25] MEDS: DEXTROSE 5% NACL 0.45% 1,000 ML IV SCH ×2 (01:47→14:18)
[2018-12-25 04:38] LABS: Apearance,Urine CLOUDY (Clear); Bacteria,Urine Occasional /HPF (Few); Bilirubin,Urine Negative (Negative); Blood, Urine Moderate mg/dL (Negative); Glucose,Urine (UA) Negative (Negative); Hyaline Casts,Urine 2 /LPF (0-3); Ketones,Urine Negative (Negative); Mucus,Urine Occasional /LPF (Occasional); Nitrite,Urine Negative (Negative); Protein,Urine 30 MG/DL; RBC,Urine 182 /HPF (0-4); Squamous Epithelial Cell,Urine Occasional /HPF (0-10); Urine Color Yellow (Yellow); Urine Specific Gravity 1.014 (1.001-1.035); Urine Urobilinogen < 2.0 EU/DL (0.2-1.0); WBC,Urine 259 /HPF (0-6)
[2018-12-25 04:51] LABS: Creatinine,Urine Random 111 MG/DL; Potassium,Urine Random 57 MMOL/L; Total Protein,Urine Random 164 MG/DL
[2018-12-25] MEDS: INSULIN LISPRO 100 UNIT/ML SUBCUT SCH ×4 (07:19→21:22)
[2018-12-25 07:54] LABS: Basophils # 0.1 10*3/uL (0.0-0.2); Basophils % 0.7 % (0.0-0.8); Eosinophils # 0.3 10*3/uL (0.0-0.87); Eosinophils % 2.9 % (0.00-10.9); Hematocrit 23.3 VOL% (35.7-47.0); Hemoglobin 7.5 GM/DL (12.0-16.0); Immature Granulocytes % 0.4 %; Immature Granulocytes Absolute 0.04 #; Lymphocytes # 1.9 10*3/uL (1.4-4.0); Lymphocytes % 18.3 % (21.3-54.2); Mean Corpuscular HGB Conc 32.2 GM/DL (32-36); Mean Platelet Volume 10.2 FL (9.6-12.0); Monocytes % 13.1 % (1.7-12.7); Neutrophils % 64.6 % (38.7-73.9); Platelet Count 220 T/CUMM (130-400); Red Blood Count 3.33 MC/CUMM (3.8-5.5); Red Cell Distribution Width 23.4 % (9.3-17.3); White Blood Count 10.3 T/CUMM (4-12)
[2018-12-25 08:24] LABS: % Iron Saturation 14.5 % (18-50); Ferritin 30.6 ng/ml (8-252)
[2018-12-25 08:26] LABS: Elliptocytes Few; Hypochromasia 1+; Platelet Estimate Adequate
[2018-12-25 08:29] LABS: Alanine Aminotransferase 18 U/L (13-56); Albumin 2.5 G/DL (3.4-5.0); Alkaline Phosphatase 112 U/L (45-117); Aspartate Amino Transferase 22 U/L (0-37); Bilirubin,Total < 0.39 MG/DL (0.2-1.0); Blood Urea Nitrogen 42 MG/DL (7-18); Calcium 7.5 MG/DL (8.5-10.1); Estimated Glom Filtration Rate 14 ML/MIN; Folate 2.7 NG/ML (5.4-24.0); Glucose 99 MG/DL (74-106); HDL Cholesterol 82 MG/DL (40-60); Osmolality,Calculated 276.4 MOS/KG (273-304); Total Protein 6.5 G/DL (6.4-8.3); Triglycerides 96 MG/DL (2-150); VLDL CHOLESTEROL 19.2 MG/DL
[2018-12-25] MEDS: cefTRIAXone 1,000 MG in SYRINGE 1 EACH IV SCH (09:18)
[2018-12-25] MEDS ORDERED: SODIUM POLYSTYRENE SULFATE 15 GM/60 ML BOTTLE PO ONE (16:40)
[2018-12-25] MEDS: DILTIAZEM CD 120 MG CAPSULE PO SCH (21:21)
[2018-12-25] MEDS: FERROUS GLUCONATE 324 MG TABLET PO SCH (21:21)
[2018-12-26] MEDS: diphenhydrAMINE CAP 25 MG CAPSULE PO PRN ×4 (00:56→23:13)
[2018-12-26 05:53] LABS: Basophils # 0.1 10*3/uL (0.0-0.2); Basophils % 0.6 % (0.0-0.8); Eosinophils # 0.5 10*3/uL (0.0-0.87); Eosinophils % 5.1 % (0.00-10.9); Hematocrit 21.8 VOL% (35.7-47.0); Hemoglobin 7.2 GM/DL (12.0-16.0); Immature Granulocytes % 0.5 %; Immature Granulocytes Absolute 0.05 #; Lymphocytes % 19.5 % (21.3-54.2); Mean Corpuscular Volume 68.8 FL (87-102); Mean Platelet Volume 11.2 FL (9.6-12.0); Monocytes % 11.9 % (1.7-12.7); Neutrophils % 62.4 % (38.7-73.9); Platelet Count 212 T/CUMM (130-400); Red Blood Count 3.17 MC/CUMM (3.8-5.5); Red Cell Distribution Width 22.7 % (9.3-17.3); White Blood Count 10.2 T/CUMM (4-12)
[2018-12-26 06:09] LABS: Alanine Aminotransferase 16 U/L (13-56); Albumin 2.3 G/DL (3.4-5.0); Alkaline Phosphatase 108 U/L (45-117); Aspartate Amino Transferase 26 U/L (0-37); Bilirubin,Total < 0.39 MG/DL (0.2-1.0); Blood Urea Nitrogen 43 MG/DL (7-18); Calcium 7.5 MG/DL (8.5-10.1); Estimated Glom Filtration Rate 15 ML/MIN; Glucose 121 MG/DL (74-106); Osmolality,Calculated 279.2 MOS/KG (273-304); Total Protein 6.1 G/DL (6.4-8.3)
[2018-12-26 06:58] LABS: Anisocytosis 1+; Hypochromasia 2+; Microcytosis 1+; Target Cells Few
[2018-12-26 07:01] LABS: Acanthocytes Few
[2018-12-26 07:02] LABS: Ovalocytes Slight; Platelet Estimate Normal
[2018-12-26] MEDS: INSULIN LISPRO 100 UNIT/ML SUBCUT SCH ×4 (07:25→21:02)
[2018-12-26] MEDS ORDERED: MAGNESIUM SULF RIDER 2 GM in PREMIX 1 EACH IV PRN (07:53)
[2018-12-26] MEDS ORDERED: MAGNESIUM SULF RIDER 4 GM in PREMIX 1 EACH IV PRN (07:53)
[2018-12-26] MEDS ORDERED: SODIUM CHLORIDE 0.9% 1,000 ML IV PRN (07:55)
[2018-12-26] MEDS: DILTIAZEM CD 120 MG CAPSULE PO SCH ×2 (08:48→21:03)
[2018-12-26] MEDS: FERROUS GLUCONATE 324 MG TABLET PO SCH ×2 (08:48→21:03)
[2018-12-26] MEDS: cefTRIAXone 1,000 MG in SYRINGE 1 EACH IV SCH (08:52)
[2018-12-26] MEDS: DEXTROSE 5% NACL 0.45% 1,000 ML IV SCH (10:29)
[2018-12-27] MEDS: diphenhydrAMINE CAP 25 MG CAPSULE PO PRN (05:54)
[2018-12-27 05:57] LABS: Hematocrit 28.2 VOL% (35.7-47.0); Hemoglobin 9.3 GM/DL (12.0-16.0)
[2018-12-27] MEDS ORDERED: MAGNESIUM GLUCONATE 500 MG TABLET PO SCH (09:00)
[2018-12-27] MEDS ORDERED: FUROSEMIDE 80 MG TABLET PO SCH (09:00)
[2018-12-27] MEDS ORDERED: metOLazone 2.5 MG TABLET PO SCH (09:00)
[2018-12-27] MEDS ORDERED: METOPROLOL TARTRATE 50 MG TABLET PO SCH (09:00)
[2018-12-27 09:02] LABS: Basophils # 0.1 10*3/uL (0.0-0.2); Basophils % 0.6 % (0.0-0.8); Eosinophils # 0.6 10*3/uL (0.0-0.87); Eosinophils % 4.8 % (0.00-10.9); Hematocrit 28.4 VOL% (35.7-47.0); Hemoglobin 9.4 GM/DL (12.0-16.0); Immature Granulocytes % 0.4 %; Immature Granulocytes Absolute 0.05 #; Lymphocytes # 1.2 10*3/uL (1.4-4.0); Lymphocytes % 10.7 % (21.3-54.2); Mean Corpuscular HGB Conc 33.1 GM/DL (32-36); Mean Corpuscular Volume 70.5 FL (87-102); Monocytes % 10.6 % (1.7-12.7); Neutrophils % 72.9 % (38.7-73.9); Platelet Count 166 T/CUMM (130-400); Red Blood Count 4.03 MC/CUMM (3.8-5.5); Red Cell Distribution Width 22.8 % (9.3-17.3); White Blood Count 11.4 T/CUMM (4-12)
[2018-12-27 09:33] LABS: Calcium 7.6 MG/DL (8.5-10.1); Osmolality,Calculated 280.1 MOS/KG (273-304)
[2018-12-27] MEDS: INSULIN LISPRO 100 UNIT/ML SUBCUT SCH ×4 (09:44→21:19)
[2018-12-27] MEDS: MAGNESIUM OXIDE 400 MG TABLET PO SCH (09:46)
[2018-12-27] MEDS: FERROUS GLUCONATE 324 MG TABLET PO SCH ×2 (09:47→20:23)
[2018-12-27] MEDS: GABAPENTIN 100 MG CAPSULE PO SCH ×2 (09:47→20:22)
[2018-12-27] MEDS: DILTIAZEM CD 120 MG CAPSULE PO SCH (09:47)
[2018-12-27] MEDS: POTASSIUM CHLORIDE 10 MEQ TABLET PO SCH (09:47)
[2018-12-27] MEDS: cefTRIAXone 1,000 MG in SYRINGE 1 EACH IV SCH (09:48)
[2018-12-27 10:45] LABS: Anisocytosis Slight; Platelet Estimate Normal
[2018-12-27 10:46] LABS: Burr Cells Few; Poikilocytosis 1+
[2018-12-27] MEDS ORDERED: NYSTATIN POWDER 15 GM BOTTLE TOP PRN (11:24)
[2018-12-27] MEDS: SODIUM CHLORIDE 0.9% 1,000 ML IV SCH (14:55)
[2018-12-27] MEDS: DEXTROSE 5% NACL 0.45% 1,000 ML IV SCH (15:24)
[2018-12-27] MEDS: ATORVASTATIN 40 MG TABLET PO SCH (20:23)
[2018-12-27] MEDS: DOCUSATE SODIUM 100 MG CAPSULE PO SCH (20:23)
[2018-12-27] MEDS: DILTIAZEM CD 180 MG CAPSULE PO SCH (20:23)
[2018-12-28 06:01] LABS: Basophils # 0.1 10*3/uL (0.0-0.2); Basophils % 0.7 % (0.0-0.8); Eosinophils # 0.8 10*3/uL (0.0-0.87); Eosinophils % 7.1 % (0.00-10.9); Hemoglobin 9.5 GM/DL (12.0-16.0); Immature Granulocytes % 0.5 %; Immature Granulocytes Absolute 0.06 #; Lymphocytes # 1.5 10*3/uL (1.4-4.0); Lymphocytes % 12.7 % (21.3-54.2); Mean Corpuscular HGB Conc 32.8 GM/DL (32-36); Mean Corpuscular Volume 72.3 FL (87-102); Mean Platelet Volume 10.8 FL (9.6-12.0); Monocytes % 12.1 % (1.7-12.7); Neutrophils % 66.9 % (38.7-73.9); Platelet Count 198 T/CUMM (130-400); Red Blood Count 4.01 MC/CUMM (3.8-5.5); Red Cell Distribution Width 22.9 % (9.3-17.3); White Blood Count 11.8 T/CUMM (4-12)
[2018-12-28 06:28] LABS: Calcium 7.9 MG/DL (8.5-10.1)
[2018-12-28] MEDS: INSULIN LISPRO 100 UNIT/ML SUBCUT SCH ×4 (07:46→22:04)
[2018-12-28] MEDS: cefTRIAXone 1,000 MG in SYRINGE 1 EACH IV SCH (10:11)
[2018-12-28] MEDS: DILTIAZEM CD 180 MG CAPSULE PO SCH ×2 (10:12→20:19)
[2018-12-28] MEDS: FERROUS GLUCONATE 324 MG TABLET PO SCH ×2 (10:12→20:21)
[2018-12-28] MEDS: POTASSIUM CHLORIDE 10 MEQ TABLET PO SCH (10:13)
[2018-12-28] MEDS: MAGNESIUM OXIDE 400 MG TABLET PO SCH (10:13)
[2018-12-28] MEDS: GABAPENTIN 100 MG CAPSULE PO SCH ×2 (10:13→20:21)
[2018-12-28] MEDS: SODIUM CHLORIDE 0.9% 1,000 ML IV SCH (10:15)
[2018-12-28] MEDS: ATORVASTATIN 40 MG TABLET PO SCH (20:19)
[2018-12-28] MEDS: DOCUSATE SODIUM 100 MG CAPSULE PO SCH (20:21)
[2018-12-29] MEDS: SODIUM CHLORIDE 0.9% 1,000 ML IV SCH ×2 (01:22→11:56)
[2018-12-29 07:43] LABS: Basophils # 0.1 10*3/uL (0.0-0.2); Basophils % 0.6 % (0.0-0.8); Eosinophils # 0.5 10*3/uL (0.0-0.87); Eosinophils % 5.6 % (0.00-10.9); Hematocrit 28.1 VOL% (35.7-47.0); Hemoglobin 9.1 GM/DL (12.0-16.0); Immature Granulocytes % 0.3 %; Immature Granulocytes Absolute 0.03 #; Lymphocytes # 1.1 10*3/uL (1.4-4.0); Lymphocytes % 12.3 % (21.3-54.2); Mean Corpuscular HGB Conc 32.4 GM/DL (32-36); Mean Corpuscular Volume 72.4 FL (87-102); Mean Platelet Volume 10.4 FL (9.6-12.0); Monocytes % 11.4 % (1.7-12.7); Neutrophils % 69.8 % (38.7-73.9); Platelet Count 200 T/CUMM (130-400); Red Blood Count 3.88 MC/CUMM (3.8-5.5); Red Cell Distribution Width 23.7 % (9.3-17.3); White Blood Count 8.7 T/CUMM (4-12)
[2018-12-29 07:54] LABS: Hypochromasia 1+; Platelet Estimate Adequate; Target Cells Few
[2018-12-29 08:06] LABS: Calcium 7.9 MG/DL (8.5-10.1)
[2018-12-29] MEDS: MAGNESIUM OXIDE 400 MG TABLET PO SCH (09:06)
[2018-12-29] MEDS: POTASSIUM CHLORIDE 10 MEQ TABLET PO SCH (09:06)
[2018-12-29] MEDS: INSULIN LISPRO 100 UNIT/ML SUBCUT SCH ×4 (09:06→21:29)
[2018-12-29] MEDS: FERROUS GLUCONATE 324 MG TABLET PO SCH ×2 (09:06→21:26)
[2018-12-29] MEDS: GABAPENTIN 100 MG CAPSULE PO SCH ×2 (09:06→21:26)
[2018-12-29] MEDS: DILTIAZEM CD 180 MG CAPSULE PO SCH ×2 (10:23→21:25)
[2018-12-29] MEDS: DOCUSATE SODIUM 100 MG CAPSULE PO SCH (21:25)
[2018-12-29] MEDS: ATORVASTATIN 40 MG TABLET PO SCH (21:25)
[2018-12-30] MEDS: SODIUM CHLORIDE 0.9% 1,000 ML IV SCH (03:09)
[2018-12-30] MEDS: INSULIN LISPRO 100 UNIT/ML SUBCUT SCH ×2 (07:30→12:56)
[2018-12-30] MEDS: GABAPENTIN 100 MG CAPSULE PO SCH (09:37)
[2018-12-30] MEDS: DILTIAZEM CD 180 MG CAPSULE PO SCH (09:37)
[2018-12-30] MEDS: MAGNESIUM OXIDE 400 MG TABLET PO SCH (09:38)
[2018-12-30] MEDS: POTASSIUM CHLORIDE 10 MEQ TABLET PO SCH (09:38)
[2018-12-30] MEDS: FERROUS GLUCONATE 324 MG TABLET PO SCH (09:38)
[2018-12-30] MEDS ORDERED: INFLUENZA VIRUS VACCINE 0.5 ML SYRINGE IM ONE (12:30)
[2018-12-30] MEDS ORDERED: PNEUMOCOCCAL VACCINE (13 VALENT) 0.5 ML SYRINGE IM ONE (12:30)
[2018-12-30 16:02] VITALS: BP 139/81
== END 2018-12-30 15:45 | disposition swing bed (61) | DRG 683 ==
LOC: SUATTDRO 08:34 → N.2E 08:34
PROVIDERS: ADMIT Internal Medicine; ATTEND Internal Medicine Geriatric Medicine

== ENCOUNTER 2019-01-27 21:19 | Inpatient (IN) ==
[2019-01-27] MEDS ORDERED: SODIUM CHLORIDE 0.9% 500 ML IV STA (21:55)
[2019-01-27 22:30] LABS: Basophils # 0.1 10*3/uL (0.0-0.2); Basophils % 0.6 % (0.0-0.8); Eosinophils # 0.5 10*3/uL (0.0-0.87); Eosinophils % 5.5 % (0.00-10.9); Hematocrit 24.7 VOL% (35.7-47.0); Hemoglobin 7.9 GM/DL (12.0-16.0); Immature Granulocytes % 0.4 %; Immature Granulocytes Absolute 0.03 #; Lymphocytes # 1.2 10*3/uL (1.4-4.0); Lymphocytes % 15.1 % (21.3-54.2); Mean Corpuscular Volume 76.5 FL (87-102); Mean Platelet Volume 10.3 FL (9.6-12.0); Neutrophils % 65.4 % (38.7-73.9); Platelet Count 239 T/CUMM (130-400); Red Blood Count 3.23 MC/CUMM (3.8-5.5); Red Cell Distribution Width 24.7 % (9.3-17.3); White Blood Count 8.2 T/CUMM (4-12)
[2019-01-27 22:50] LABS: Alanine Aminotransferase 16 U/L (13-56); Albumin 2.4 G/DL (3.4-5.0); Alkaline Phosphatase 156 U/L (45-117); Aspartate Amino Transferase 21 U/L (0-37); Bilirubin,Total < 0.39 MG/DL (0.2-1.0); Blood Urea Nitrogen 58 MG/DL (7-18); Calcium 7.5 MG/DL (8.5-10.1); Estimated Glom Filtration Rate 10 ML/MIN; Glucose 59 MG/DL (74-106); Osmolality,Calculated 281.2 MOS/KG (273-304); Total Protein 6.6 G/DL (6.4-8.3)
[2019-01-27] MEDS ORDERED: INSULIN REGULAR 100 UNIT/ML IV STA (23:02)
[2019-01-27] MEDS ORDERED: DEXTROSE 50% 25 GM/50 ML VIAL IV STA (23:02)
[2019-01-27] MEDS ORDERED: ONDANSETRON 4 MG/2 ML VIAL IV PRN (23:13)
[2019-01-27] MEDS ORDERED: DEXTROSE 50% 25 GM/50 ML SYRINGE IV ONE (23:59)
[2019-01-28 00:53] LABS: Apearance,Urine CLOUDY (Clear); Bacteria,Urine Many /HPF (Few); Bilirubin,Urine Negative (Negative); Blood, Urine Moderate mg/dL (Negative); Glucose,Urine (UA) Negative (Negative); Ketones,Urine Negative (Negative); Nitrite,Urine Negative (Negative); Protein,Urine 30 MG/DL; RBC,Urine 6 /HPF (0-4); Squamous Epithelial Cell,Urine Occasional /HPF (0-10); Urine Color Yellow (Yellow); Urine Urobilinogen < 2.0 EU/DL (0.2-1.0); WBC,Urine 664 /HPF (0-6)
[2019-01-28] MEDS ORDERED: DEXTROSE 50% 25 GM/50 ML SYRINGE IV ONE (01:14)
[2019-01-28] MEDS ORDERED: DEXTROSE 50% 25 GM/50 ML VIAL IV ONE (01:17)
[2019-01-28] MEDS ORDERED: GLUCAGON 1 MG VIAL ONE (02:17)
[2019-01-28] MEDS ORDERED: GLUCAGON 1 MG VIAL IV ONE (02:22)
[2019-01-28 04:59] LABS: INR 1.1; Partial Thromboplastin Time 29.9 SECS (20.8-36.0)
[2019-01-28 05:08] LABS: Basophils # 0.1 10*3/uL (0.0-0.2); Basophils % 0.6 % (0.0-0.8); Eosinophils # 0.7 10*3/uL (0.0-0.87); Eosinophils % 5.4 % (0.00-10.9); Hematocrit 23.4 VOL% (35.7-47.0); Hemoglobin 7.7 GM/DL (12.0-16.0); Immature Granulocytes % 0.6 %; Immature Granulocytes Absolute 0.08 #; Lymphocytes # 1.7 10*3/uL (1.4-4.0); Lymphocytes % 13.4 % (21.3-54.2); Mean Corpuscular HGB Conc 32.9 GM/DL (32-36); Mean Corpuscular Volume 75.5 FL (87-102); Platelet Count 196 T/CUMM (130-400); Red Cell Distribution Width 24.8 % (9.3-17.3); White Blood Count 12.3 T/CUMM (4-12)
[2019-01-28 05:21] LABS: Calcium 7.6 MG/DL (8.5-10.1); Osmolality,Calculated 281.2 MOS/KG (273-304)
[2019-01-28] MEDS ORDERED: GLUCAGON 1 MG VIAL IM ONE (05:42)
[2019-01-28] MEDS ORDERED: SODIUM CHLORIDE 0.9% 1,000 ML IV SCH (14:30)
[2019-01-28] MEDS ORDERED: NYSTATIN POWDER 15 GM BOTTLE TOP PRN (14:34)
[2019-01-28] MEDS ORDERED: FEXOFENADINE 60 MG TABLET PO PRN ×2 (14:34→15:00)
[2019-01-28] MEDS ORDERED: SODIUM CHLORIDE 0.9% IV SCH (14:39)
[2019-01-28] MEDS ORDERED: DEXTROSE 5% IV SCH (14:39)
[2019-01-28] MEDS ORDERED: SODIUM CHLORIDE 0.9% 1,000 ML IV PRN ×2 (14:41→20:26)
[2019-01-28] MEDS ORDERED: DEXTROSE 5% NACL 0.9% 1,000 ML IV SCH (15:30)
[2019-01-28] MEDS ORDERED: METOPROLOL TARTRATE 50 MG TABLET PO SCH (17:00)
[2019-01-28] MEDS: DEXTROSE 10% 1,000 ML IV SCH (17:04)
[2019-01-28] MEDS: SKIN HEALING OINT (AQUAPHOR) 50 GM TUBE TOP PRN (17:05)
[2019-01-28] MEDS: ATORVASTATIN 40 MG TABLET PO SCH (20:51)
[2019-01-28] MEDS: DOCUSATE SODIUM 100 MG CAPSULE PO SCH (20:51)
[2019-01-29] MEDS: SKIN HEALING OINT (AQUAPHOR) 50 GM TUBE TOP PRN
[2019-01-29] MEDS ORDERED: FUROSEMIDE 100 MG/10 ML VIAL IV SCH (09:00)
[2019-01-29] MEDS: PANTOPRAZOLE 40 MG VIAL IV SCH (09:59)
[2019-01-29 10:36] LABS: Basophils # 0.1 10*3/uL (0.0-0.2); Basophils % 0.9 % (0.0-0.8); Eosinophils # 0.9 10*3/uL (0.0-0.87); Eosinophils % 10.1 % (0.00-10.9); Hematocrit 27.4 VOL% (35.7-47.0); Hemoglobin 8.9 GM/DL (12.0-16.0); Immature Granulocytes % 0.5 %; Immature Granulocytes Absolute 0.04 #; Lymphocytes # 1.1 10*3/uL (1.4-4.0); Lymphocytes % 12.3 % (21.3-54.2); Mean Corpuscular HGB Conc 32.5 GM/DL (32-36); Mean Corpuscular Volume 78.3 FL (87-102); Mean Platelet Volume 9.8 FL (9.6-12.0); Monocytes % 16.8 % (1.7-12.7); Neutrophils % 59.4 % (38.7-73.9); Platelet Count 226 T/CUMM (130-400); Red Cell Distribution Width 22.3 % (9.3-17.3); White Blood Count 8.6 T/CUMM (4-12)
[2019-01-29] MEDS ORDERED: diphenhydrAMINE CAP 25 MG CAPSULE PO PRN (10:38)
[2019-01-29] MEDS ORDERED: diphenhydrAMINE 2% CREAM 28 GM TUBE TOP PRN (10:38)
[2019-01-29 11:04] LABS: Calcium 7.5 MG/DL (8.5-10.1); Osmolality,Calculated 285.2 MOS/KG (273-304)
[2019-01-29 11:06] LABS: Atypical Lymphocytes Few; Band Neutrophils 2 % (0-10); Eosinophils 15 % (0-10); Hypochromasia 1+; Lymphocytes 10 % (20-55); Segmented Neutrophils 53 % (50-85); Total Cells Counted 100
[2019-01-29 11:07] LABS: Acanthocytes Few; Anisocytosis 1+; Microcytosis 1+; Target Cells Slight
[2019-01-29] MEDS: METOPROLOL TARTRATE 25 MG TABLET PO SCH ×2 (12:20→22:00)
[2019-01-29] MEDS: FUROSEMIDE 100 MG/10 ML VIAL IV SCH (15:46)
[2019-01-29] MEDS: metOLazone 2.5 MG TABLET PO SCH (15:46)
[2019-01-29] MEDS: DEXTROSE 10% 1,000 ML IV SCH (15:55)
[2019-01-29] MEDS ORDERED: diphenhydrAMINE 50 MG/1 ML VIAL IV PRN (20:46)
[2019-01-29] MEDS: DOCUSATE SODIUM 100 MG CAPSULE PO SCH (22:01)
[2019-01-29] MEDS: ATORVASTATIN 40 MG TABLET PO SCH (22:01)
[2019-01-30 09:22] LABS: Basophils # 0.1 10*3/uL (0.0-0.2); Basophils % 0.9 % (0.0-0.8); Eosinophils # 1.1 10*3/uL (0.0-0.87); Eosinophils % 12.4 % (0.00-10.9); Hematocrit 28.3 VOL% (35.7-47.0); Hemoglobin 9.1 GM/DL (12.0-16.0); Immature Granulocytes % 0.5 %; Immature Granulocytes Absolute 0.04 #; Lymphocytes # 1.2 10*3/uL (1.4-4.0); Lymphocytes % 13.3 % (21.3-54.2); Mean Corpuscular HGB Conc 32.2 GM/DL (32-36); Mean Corpuscular Volume 79.3 FL (87-102); Mean Platelet Volume 9.9 FL (9.6-12.0); Neutrophils % 55.9 % (38.7-73.9); Platelet Count 229 T/CUMM (130-400); Red Blood Count 3.57 MC/CUMM (3.8-5.5); Red Cell Distribution Width 22.5 % (9.3-17.3); White Blood Count 8.7 T/CUMM (4-12)
[2019-01-30 09:44] LABS: Anisocytosis 1+; Eosinophils 10 % (0-10); Lymphocytes 18 % (20-55); Segmented Neutrophils 60 % (50-85); Total Cells Counted 100
[2019-01-30 09:45] LABS: Hypochromasia 1+; Ovalocytes Few; Platelet Estimate Normal; Target Cells Few
[2019-01-30 09:46] LABS: Acanthocytes Few
[2019-01-30 09:50] LABS: Calcium 7.5 MG/DL (8.5-10.1); Osmolality,Calculated 290.1 MOS/KG (273-304)
[2019-01-30] MEDS: METOPROLOL TARTRATE 25 MG TABLET PO SCH ×2 (10:08→22:17)
[2019-01-30] MEDS: metOLazone 2.5 MG TABLET PO SCH (10:09)
[2019-01-30] MEDS: PANTOPRAZOLE 40 MG TABLET PO SCH (12:33)
[2019-01-30] MEDS: PANTOPRAZOLE 40 MG VIAL IV SCH (12:34)
[2019-01-30] MEDS: FUROSEMIDE 100 MG/10 ML VIAL IV SCH (12:34)
[2019-01-30] MEDS: diphenhydrAMINE CAP 25 MG CAPSULE PO PRN ×2 (12:34→20:14)
[2019-01-30] MEDS: FUROSEMIDE 80 MG TABLET PO SCH (17:54)
[2019-01-30] MEDS: ACETAMINOPHEN 325 MG TABLET PO PRN (20:14)
[2019-01-30] MEDS: ATORVASTATIN 40 MG TABLET PO SCH (22:17)
[2019-01-30] MEDS: DOCUSATE SODIUM 100 MG CAPSULE PO SCH (22:17)
[2019-01-30] MEDS: SKIN HEALING OINT (AQUAPHOR) 50 GM TUBE TOP PRN (23:42)
[2019-01-31 08:29] LABS: Basophils # 0.1 10*3/uL (0.0-0.2); Basophils % 0.7 % (0.0-0.8); Eosinophils % 11.2 % (0.00-10.9); Hemoglobin 8.8 GM/DL (12.0-16.0); Immature Granulocytes % 0.6 %; Immature Granulocytes Absolute 0.05 #; Lymphocytes # 1.1 10*3/uL (1.4-4.0); Lymphocytes % 12.9 % (21.3-54.2); Mean Corpuscular HGB Conc 32.6 GM/DL (32-36); Mean Corpuscular Volume 79.2 FL (87-102); Monocytes % 17.5 % (1.7-12.7); Neutrophils % 57.1 % (38.7-73.9); Platelet Count 219 T/CUMM (130-400); Red Blood Count 3.41 MC/CUMM (3.8-5.5); Red Cell Distribution Width 22.5 % (9.3-17.3); White Blood Count 8.7 T/CUMM (4-12)
[2019-01-31 08:43] LABS: Calcium 7.4 MG/DL (8.5-10.1); Osmolality,Calculated 293.7 MOS/KG (273-304)
[2019-01-31 08:51] LABS: Eosinophils 14 % (0-10); Lymphocytes 15 % (20-55); Segmented Neutrophils 60 % (50-85); Total Cells Counted 100
[2019-01-31 08:52] LABS: Anisocytosis 1+; Atypical Lymphocytes Few; Hypochromasia 1+; Microcytosis 1+; Target Cells Slight
[2019-01-31 08:53] LABS: Acanthocytes Few
[2019-01-31] MEDS: metOLazone 2.5 MG TABLET PO SCH (09:45)
[2019-01-31] MEDS: METOPROLOL TARTRATE 25 MG TABLET PO SCH ×2 (09:45→21:42)
[2019-01-31] MEDS: FUROSEMIDE 80 MG TABLET PO SCH ×2 (09:45→15:39)
[2019-01-31] MEDS: PANTOPRAZOLE 40 MG TABLET PO SCH (09:45)
[2019-01-31] MEDS: diphenhydrAMINE CAP 25 MG CAPSULE PO PRN ×2 (11:15→22:02)
[2019-01-31] MEDS: ACETAMINOPHEN 325 MG TABLET PO PRN (21:42)
[2019-01-31] MEDS: DOCUSATE SODIUM 100 MG CAPSULE PO SCH (21:42)
[2019-01-31] MEDS: ATORVASTATIN 40 MG TABLET PO SCH (21:42)
[2019-02-01 06:32] LABS: Basophils # 0.1 10*3/uL (0.0-0.2); Basophils % 0.7 % (0.0-0.8); Eosinophils % 11.9 % (0.00-10.9); Hematocrit 26.6 VOL% (35.7-47.0); Hemoglobin 8.6 GM/DL (12.0-16.0); Immature Granulocytes % 0.5 %; Immature Granulocytes Absolute 0.04 #; Lymphocytes # 1.2 10*3/uL (1.4-4.0); Lymphocytes % 14.2 % (21.3-54.2); Mean Corpuscular HGB Conc 32.3 GM/DL (32-36); Mean Corpuscular Volume 79.2 FL (87-102); Mean Platelet Volume 10.1 FL (9.6-12.0); Monocytes % 17.6 % (1.7-12.7); Neutrophils % 55.1 % (38.7-73.9); Platelet Count 220 T/CUMM (130-400); Red Blood Count 3.36 MC/CUMM (3.8-5.5); Red Cell Distribution Width 22.5 % (9.3-17.3); White Blood Count 8.2 T/CUMM (4-12)
[2019-02-01 06:57] LABS: Calcium 7.6 MG/DL (8.5-10.1); Osmolality,Calculated 291.8 MOS/KG (273-304)
[2019-02-01 07:03] LABS: Eosinophils 4 % (0-10); Hypochromasia 1+; Lymphocytes 14 % (20-55); Microcytosis 1+; Platelet Estimate Adequate; Polychromasia Few; Segmented Neutrophils 77 % (50-85); Total Cells Counted 100
[2019-02-01 07:04] LABS: Target Cells Few
[2019-02-01] MEDS: METOPROLOL TARTRATE 25 MG TABLET PO SCH ×2 (09:25→21:32)
[2019-02-01] MEDS: PANTOPRAZOLE 40 MG TABLET PO SCH (09:25)
[2019-02-01] MEDS: metOLazone 2.5 MG TABLET PO SCH (09:25)
[2019-02-01] MEDS: FUROSEMIDE 80 MG TABLET PO SCH ×2 (09:25→16:14)
[2019-02-01] MEDS: ATORVASTATIN 40 MG TABLET PO SCH (21:32)
[2019-02-01] MEDS: DOCUSATE SODIUM 100 MG CAPSULE PO SCH (21:32)
[2019-02-02] MEDS: diphenhydrAMINE CAP 25 MG CAPSULE PO PRN (01:49)
[2019-02-02 06:56] LABS: Basophils # 0.1 10*3/uL (0.0-0.2); Basophils % 0.7 % (0.0-0.8); Eosinophils % 11.6 % (0.00-10.9); Hematocrit 25.8 VOL% (35.7-47.0); Hemoglobin 8.4 GM/DL (12.0-16.0); Immature Granulocytes % 0.7 %; Immature Granulocytes Absolute 0.06 #; Lymphocytes # 1.3 10*3/uL (1.4-4.0); Lymphocytes % 15.1 % (21.3-54.2); Mean Corpuscular HGB Conc 32.6 GM/DL (32-36); Mean Corpuscular Volume 78.7 FL (87-102); Mean Platelet Volume 10.5 FL (9.6-12.0); Monocytes % 16.9 % (1.7-12.7); Platelet Count 191 T/CUMM (130-400); Red Blood Count 3.28 MC/CUMM (3.8-5.5); Red Cell Distribution Width 22.3 % (9.3-17.3); White Blood Count 8.7 T/CUMM (4-12)
[2019-02-02 07:24] LABS: Eosinophils 11 % (0-10); Hypochromasia 1+; Lymphocytes 15 % (20-55); Microcytosis 1+; Segmented Neutrophils 62 % (50-85); Total Cells Counted 100
[2019-02-02 07:25] LABS: Acanthocytes Few; Ovalocytes Slight; Target Cells Few
[2019-02-02 07:29] LABS: Calcium 7.5 MG/DL (8.5-10.1); Osmolality,Calculated 295.7 MOS/KG (273-304)
[2019-02-02] MEDS: FUROSEMIDE 80 MG TABLET PO SCH (09:24)
[2019-02-02] MEDS: METOPROLOL TARTRATE 25 MG TABLET PO SCH (09:24)
[2019-02-02] MEDS: PANTOPRAZOLE 40 MG TABLET PO SCH (09:24)
[2019-02-02] MEDS: metOLazone 2.5 MG TABLET PO SCH (09:24)
[2019-02-02] MEDS ORDERED: GLUCAGON 1 MG VIAL IM PRN (09:32)
[2019-02-02] MEDS ORDERED: DEXTROSE 10% 250 ML BAG IV PRN (09:32)
[2019-02-02] MEDS ORDERED: INSULIN REGULAR 100 UNIT/ML SUBCUT SCH (11:30)
[2019-02-02 14:16] VITALS: BP 144/74
== END 2019-02-02 13:35 | DRG 682 ==
LOC: EDUNIT# → EDBD → N.ED 21:19 → N.EDINP 23:13 → N.TELES 23:57
PROVIDERS: ADMIT Internal Medicine; ATTEND Internal Medicine